=== PATIENT | female | born 1985 | race African-American/Black ===

== ENCOUNTER 2016-06-01 12:15 | Inpatient (IN) ==
[2016-06-01] MEDS: LACTATED RINGERS 1,000 ML IV SCH (12:35)
[2016-06-01] MEDS ORDERED: ONDANSETRON 4 MG/2 ML VIAL IV PRN (12:37)
[2016-06-01 13:01] LABS: Basophils # 0.1 10*3/uL (0.0-0.2); Basophils % 0.6 % (0.0-0.8); Eosinophils # 0.2 10*3/uL (0.0-0.87); Eosinophils % 1.6 % (0.00-10.9); Hematocrit 31.4 VOL% (35.7-47.0); Hemoglobin 9.9 GM/DL (12.0-16.0); Immature Granulocytes % 1.1 %; Immature Granulocytes Absolute 0.12 #; Lymphocytes # 1.6 10*3/uL (1.4-4.0); Lymphocytes % 15.1 % (21.3-54.2); Mean Corpuscular HGB Conc 31.5 GM/DL (32-36); Mean Corpuscular Hemoglobin 25 PG (27-34); Mean Corpuscular Volume 80.3 FL (87-102); Mean Platelet Volume 10.5 FL (9.6-12.0); Monocytes # 1.3 10*3/uL (0.11-0.8); Monocytes % 11.8 % (1.7-12.7); Neutrophils # 7.4 10*3/uL (1.4-7.4); Neutrophils % 69.8 % (38.7-73.9); Platelet Count 242 T/CUMM (130-400); Red Blood Count 3.91 MC/CUMM (3.8-5.5); Red Cell Distribution Width 13.9 % (9.3-17.3); White Blood Count 10.6 T/CUMM (4-12)
[2016-06-01] MEDS: BETAMETH SODIUM PHOS/ACETATE 30 MG/5 ML VIAL IM SCH (13:10)
[2016-06-01 13:19] LABS: Apearance,Urine CLEAR (Clear); Bacteria,Urine Occasional /HPF (Few); Bilirubin,Urine Negative (Negative); Blood, Urine Negative (Negative); Glucose,Urine (UA) 150 mg/dL (Negative); Ketones,Urine 5 mg/dL (Negative); Mucus,Urine Occasional /LPF (Occasional); Nitrite,Urine Negative (Negative); Protein,Urine Negative; RBC,Urine 1 /HPF (0-4); Squamous Epithelial Cell,Urine Occasional /HPF (0-10); Urine Color Yellow (Yellow); Urine Specific Gravity 1.011 (1.001-1.035); WBC,Urine 1 /HPF (0-6)
[2016-06-01 13:26] LABS: Albumin 2.7 G/DL (3.4-5.0); Bilirubin,Total 0.6 MG/DL (0.2-1.0); Calcium 8.5 MG/DL (8.5-10.1); Osmolality,Calculated 277.1 MOS/KG (273-304); Potassium 3.7 MMOL/L (3.5-5.1); Total Protein 6.3 G/DL (6.4-8.3)
[2016-06-01] MEDS ORDERED: MEPERIDINE 25 MG/1 ML VIAL IV ONE (15:11)
[2016-06-01] MEDS ORDERED: PROMETHAZINE 25 MG/1 ML VIAL IM ONE (15:11)
[2016-06-01] MEDS ORDERED: TERBUTALINE 1 MG/1 ML VIAL SUBCUT ONE (17:33)
[2016-06-01] MEDS ORDERED: LACTATED RINGERS 1,000 ML IV SCH (18:00)
--- NOTE | 2016-06-01 19:53 | History and Physical Update ---
History and Physical Update - Dictation Physical: refer to scanned H&P - Physical Exam Mental Status: alert and oriented Heart: regular rate and rhythm Lung: clear to auscultation Abdomen: within normal limits Vitals: within normal limits History and Physical Changes: 31yo at 29w3d by EDC 08/14/16 admitted with regular contractions. Sent over for IV hydration, labs with complaints in office today of unable to hold anything down except for popsicles for several
--- NOTE | 2016-06-01 20:45 | Ultrasound Report ---
Referring physician: Shanice Burt Exam: OB limited ultrasound Date: June 01, 2016 Comparison: OB ultrasounds February 14, 2016 and December 31, 2015 Reason: labor, thinning of cervix Technique: Transabdominal grayscale ultrasound images were obtained. Ultrasound images were captured and stored. Findings: There is a single intrauterine in a cephalic presentation. heart rate is 160 bpm. Amniotic fluid is within normal limits with an RACIHD of 10.5 cm. The placenta is located near the fundus. The cervix measures 3.3 cm in length, and the internal os appears closed. There is questionable minimal fluid within the endocervical canal. Evaluation of anatomy is limited by the gestational age. BPD: 29 weeks 1 day HC: 30 weeks 0 days AC: 29 weeks 6 days The composite estimated gestational age by ultrasound is 29 weeks 5 days with an JUAN CARLOS of August 12, 2016. Previously calculated JUAN CARLOS on December 31, 2015 was August 15, 2016. EFW is 1491 g or 3 lbs. 5 oz.. The HC/AC ratio is 1.07, which is within normal limits. The growth percentile is 57.7% and is based on the LMP. The maternal ovaries are not visualized. Impression: 1. There is a single intrauterine in a cephalic presentation. heart rate is 160 bpm. Estimated gestational age by ultrasound is 29 weeks 5 days with an JUAN CARLOS of August 12, 2016. Previously calculated JUAN CARLOS was August 15, 2016. EFW is 3 lbs. 5 oz. 2. The cervix measures 3.3 cm in length. There is questionable minimal fluid within the endocervical canal, but the internal os appears closed. PROCEDURE INTERPRETED AT [facility] DEPARTMENT OF RADIOLOGY Final Report Signed by: Dr. Laurie Galan
[2016-06-01] MEDS ORDERED: NIFEdipine 10 MG CAPSULE ONE (20:53)
[2016-06-01] MEDS: NIFEdipine 10 MG CAPSULE PO SCH (20:59)
[2016-06-02] MEDS: LACTATED RINGERS 1,000 ML IV SCH (00:56)
[2016-06-02] MEDS ORDERED: LORazepam 2 MG/1 ML VIAL IV ONE (02:39)
[2016-06-02] MEDS: NIFEdipine 10 MG CAPSULE PO SCH (04:02)
[2016-06-02] MEDS ORDERED: NIFEdipine 10 MG CAPSULE PO SCH (09:01)
--- NOTE | 2016-06-02 09:05 | OB/GYN Progress Note ---
SAP ARCHITECT - PN: Subj Interval history: 29w4d still with regular UCs. Did not tolerate Brethine well at all with tachycardia and significant anxiety relieved with Ativan after not subsiding for several hours after dosing. Cannot tolerate Procardia 10 mg. She felt like she couldn't breathe. Will try Procardia 5 mg to see if she can tolerate this. No cervical change this morning. Will try Demerol/Phenergan for relief. Receiving second dose of steroids today. Will decrease IV rate to 60 cc/ hour. Will collect GBS culture. Exam SAP ARCHITECT - Constitutional Vitals: Vital Signs Temp Pulse Resp BP Pulse Ox 06/02/16 04:00 100 H 20 108/68 06/01/16 16:00 98.6 F 95 H 22 124/67 06/01/16 12:34 97.8 F 82 20 117/69 100 Results - Labs CBC & BMP: 06/01/16 12:44 06/01/16 12:44
[2016-06-02] MEDS: MAGNESIUM GLUCONATE 500 MG TABLET PO SCH ×4 (09:37→21:25)
--- NOTE | 2016-06-02 10:59 | XRay Report ---
Portable chest Date: 06/02/2016 Clinical history: Shortness of breath Comparison: 05/18/2016 Technique: Portable AP sitting chest Findings: The heart is minimally enlarged. Motion artifact on the film with the pelvis shielded. Accentuation of the perihilar markings extending to the lung bases. No acute osseous findings with unremarkable mediastinum. Impression: Motion artifact limits the exam. Findings which can be seen with mild CHF/pneumonitis with progressive cardiomegaly. PROCEDURE INTERPRETED AT [facility] DEPARTMENT OF RADIOLOGY Final Report Signed by: Dr. Mildred Perez
[2016-06-02] MEDS ORDERED: LACTATED RINGERS 1,000 ML IV SCH (11:25)
[2016-06-02] MEDS ORDERED: FUROSEMIDE 20 MG/2 ML VIAL IV ONE ×2 (12:58→13:30)
[2016-06-02] MEDS: BETAMETH SODIUM PHOS/ACETATE 30 MG/5 ML VIAL IM SCH (14:09)
[2016-06-03] MEDS: MAGNESIUM GLUCONATE 500 MG TABLET PO SCH ×3 (01:00→10:00)
[2016-06-03 08:50] VITALS: BP 109/72
--- NOTE | 2016-06-03 09:23 | Discharge Summary ---
Hospital Course - Hospital Course Hospital Course: Pt admitted for IV hydration, not able to keep anything down except popsickles. Feeling bad, short of breath. Found to have regular painful UCs upon monitoring. IV hydration, sedation and tocolyitics administered. Pt did not tolerate Brethine or Procardia. Anxiety seemingly provoked by Brethine was relieved with Ativan. We did start her on magnesium gluconate that she tolerated well. CXR on PAD#1 showed poss fluid overload and pt responded well to IV Lasix with good urine output. By the evening of PAD#1 pt was feeling much better and UCs had decreased markedly. She has an appt with DIANE Dorantes tomorrow and she plans to keep this appt. Discharge Plan - Discharge Data Disposition: Disch To Home/Self Care Condition at Discharge: Stable Discharge Diet: regular diet Activity: other (Off work until after delivery; light activity) Hygiene: may shower Weight Bearing at Discharge: full weight bearing Driving: no restrictions Contact your physician if you experience:: fever over 101, Difficulty voiding, Redness or swelling, Nausea/Vomiting, Shortness of breath, Bleeding, pain uncontrolled by pain medications - Discharge Medications New Magnesium Gluconate Tab 500 mg PO Q4H #120 tablet No Action Pnv95/Ferrous Fumarate/FA [ Tablet] 1 each PO DAILY - Follow Up or Referral Follow Up: Shanice Burt DO [Family Provider] - 2 Weeks (and prn) - Forms/Instructions Exam - Constitutional Vitals: Period Temp Pulse Resp BP Sys/Valencia Pulse Ox Last 24 Hr 97.0 F-98.5 F 91-108 18-19 105-131/57-72 100 General appearance: normal weight, no acute distress - Head Head exam: Present: normal inspection, normocephalic - Eye Eye exam: Present: EOMI - Respiratory Respiratory exam: Present: clear to auscultation bilaterally - Cardiovascular Cardiovascular exam: Present: regular rate and rhythm - GI/Abdominal GI/Abdominal exam: Present: soft (fundus firm, nontender) - Extremities Exam Extremities exam: Present: normal inspection - Neurological Exam Neurological exam: Present: alert, oriented X3 - Psychiatric Psychiatric exam: Present: normal affect, normal mood - Skin Skin exam: Present: normal color, warm Discharge Results Procedures and tests throughout hospitalization: Pending Orders 06/02/16 09:10 Group B Streptococcus Culture Stat DS: Provider Date of admission: 06/01/16 17:35 Primary care physician: . No PCP Attending physician on admission: Shanice Burt DO Discharging clinician: Shanice Burt DO Expected date of discharge: 06/03/16
== END 2016-06-03 10:20 | disposition home or self-care (01) | DRG 775 ==
LOC: EDSTATUS 12:15 → N.LD 12:15 → N.LDOUT 12:15 → N.LD 12:22 → UNDODISOB 06-03 10:20
PROVIDERS: ADMIT Obstetrics & Gynecology; ATTEND Obstetrics & Gynecology

== ENCOUNTER 2016-07-13 09:44 | Inpatient (IN) ==
[2016-07-13 10:43] LABS: Basophils % 0.4 % (0.0-0.8); Eosinophils # 0.2 10*3/uL (0.0-0.87); Eosinophils % 1.9 % (0.00-10.9); Hematocrit 28.1 VOL% (35.7-47.0); Hemoglobin 8.7 GM/DL (12.0-16.0); Immature Granulocytes % 0.7 %; Immature Granulocytes Absolute 0.06 #; Lymphocytes # 1.4 10*3/uL (1.4-4.0); Lymphocytes % 16.2 % (21.3-54.2); Mean Corpuscular Hemoglobin 23 PG (27-34); Mean Corpuscular Volume 73.9 FL (87-102); Mean Platelet Volume 11.1 FL (9.6-12.0); Monocytes # 0.9 10*3/uL (0.11-0.8); Monocytes % 11.1 % (1.7-12.7); Neutrophils # 5.9 10*3/uL (1.4-7.4); Neutrophils % 69.7 % (38.7-73.9); Platelet Count 240 T/CUMM (130-400); Red Cell Distribution Width 16.6 % (9.3-17.3); White Blood Count 8.4 T/CUMM (4-12)
[2016-07-13] MEDS ORDERED: LIDOCAINE 1% 50 ML VIAL ONE (12:53)
[2016-07-13] MEDS: ACETAMINOPHEN 325 MG TABLET PO PRN ×2 (13:32→19:12)
--- NOTE | 2016-07-13 16:44 | Ultrasound Report ---
US OB biophys profile Indication: . Variable decelerations. Biophysical profile ultrasound: Comparison 06/01/2016. Single fetus is vertex. Placenta is at the fundus. No previa. RACHID 64 mm, HR 145 BPM. breathing, movement and tone are within normal limits. Impression: 11/09 biophysical profile score. Please note RACHID 64 mm. PROCEDURE INTERPRETED AT [facility] DEPARTMENT OF RADIOLOGY Final Report Signed by: Neel Hagen M.D.
[2016-07-14] MEDS: LACTATED RINGERS 1,000 ML IV SCH ×2 (06:21→13:46)
[2016-07-14] MEDS ORDERED: FAMOTIDINE 20 MG/2 ML VIAL IV ONE (06:34)
[2016-07-14] MEDS ORDERED: CITRIC ACID/SODIUM CITRATE 30 ML UDCUP PO ONE (06:34)
[2016-07-14] MEDS ORDERED: OXYTOCIN/LR 20 UNIT/1,000 ML BAG IV ONE ×2 (06:46→08:32)
[2016-07-14] MEDS ORDERED: SCOPOLAMINE 1.5 MG PATCH TRANSDERM ONE ×2 (06:48→09:13)
[2016-07-14 07:02] LABS: Basophils % 0.4 % (0.0-0.8); Eosinophils # 0.1 10*3/uL (0.0-0.87); Eosinophils % 1.6 % (0.00-10.9); Hematocrit 27.3 VOL% (35.7-47.0); Hemoglobin 8.4 GM/DL (12.0-16.0); Immature Granulocytes % 0.8 %; Immature Granulocytes Absolute 0.06 #; Lymphocytes # 1.5 10*3/uL (1.4-4.0); Lymphocytes % 19.8 % (21.3-54.2); Mean Corpuscular HGB Conc 30.8 GM/DL (32-36); Mean Corpuscular Hemoglobin 23 PG (27-34); Mean Corpuscular Volume 73.6 FL (87-102); Mean Platelet Volume 11.3 FL (9.6-12.0); Monocytes # 1.1 10*3/uL (0.11-0.8); Monocytes % 13.7 % (1.7-12.7); Neutrophils # 4.9 10*3/uL (1.4-7.4); Neutrophils % 63.7 % (38.7-73.9); Platelet Count 232 T/CUMM (130-400); Red Blood Count 3.71 MC/CUMM (3.8-5.5); Red Cell Distribution Width 16.7 % (9.3-17.3); White Blood Count 7.7 T/CUMM (4-12)
[2016-07-14] MEDS ORDERED: OXYTOCIN 10 UNIT/ML VIAL ONE (07:54)
[2016-07-14] MEDS ORDERED: ACETAMINOPHEN 325 MG TABLET PO PRN (08:32)
[2016-07-14] MEDS ORDERED: MAGNESIUM HYDROXIDE SUSP 30 ML UDCUP PO PRN (08:32)
[2016-07-14] MEDS ORDERED: ONDANSETRON 4 MG/2 ML VIAL IV PRN (08:32)
[2016-07-14] MEDS ORDERED: SIMETHICONE CHEW 80 MG TABLET PO PRN (08:32)
[2016-07-14] MEDS ORDERED: PHENYLEPHRINE 1 MG/10 ML SYRINGE IV ONE (08:33)
[2016-07-14] MEDS ORDERED: ONDANSETRON 4 MG/2 ML VIAL ONE (08:33)
[2016-07-14] MEDS ORDERED: MIDAZOLAM 2 MG/2 ML VIAL ONE (08:34)
[2016-07-14] MEDS ORDERED: MORPHINE 10 MG/10 ML VIAL ONE (08:34)
[2016-07-14 08:35] LABS: Apearance,Urine CLOUDY (Clear); Bilirubin,Urine Negative (Negative); Blood, Urine Negative (Negative); Glucose,Urine (UA) Negative (Negative); Ketones,Urine 80 mg/dL (Negative); Mucus,Urine Occasional /LPF (Occasional); Nitrite,Urine Negative (Negative); Protein,Urine 30 MG/DL; RBC,Urine 20 /HPF (0-4); Squamous Epithelial Cell,Urine Occasional /HPF (0-10); Urine Color Yellow (Yellow); Urine Specific Gravity 1.043 (1.001-1.035); Urine Urobilinogen < 2.0 EU/DL (0.2-1.0); WBC,Urine 3 /HPF (0-6)
--- NOTE | 2016-07-14 08:50 | History and Physical Update ---
History and Physical Update - Dictation Physical: refer to scanned H&P - Physical Exam Mental Status: alert and oriented Heart: regular rate and rhythm Lung: clear to auscultation Abdomen: within normal limits Vitals: within normal limits History and Physical Changes: Pt at 35w4d admitted yesterday after outpatient US-guided amniocentesis monitoring revealed recurrent variable decels, episodes of bradycardia though the overall pattern had very good variability. BPP showed RACHID of 6.4. In light of pt's difficulties with the with these other developments, with her height of 4'5", feel it is best to proceed with delivery. 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 She was seen by Dr. Hu and evaluation of pt revealed no maternal concerns usually associated with Horne syndrome. Pt has been quite SOB and uncomfortable throughout the but much more so in the past few weeks.
[2016-07-14] MEDS ORDERED: RHO(D) IMMUNE GLOBULIN 300 MCG SYRINGE IM ONE (09:00)
[2016-07-14] MEDS: IBUPROFEN 800 MG TABLET PO PRN (10:00)
--- NOTE | 2016-07-14 10:26 | Anesthesia ---
Anesthesia Post OP - Post Ansesthetic Evaluation Patient seen in post op: Yes Resp: within normal limits CV: within normal limits Mental: within normal limits Temp: within normal limits [id number]: within normal limits Nausea and Vomiting: within normal limits Pain: within normal limits
[2016-07-14] MEDS ORDERED: PROMETHAZINE 25 MG/1 ML VIAL ONE (11:43)
[2016-07-14] MEDS ORDERED: PROMETHAZINE 25 MG/1 ML VIAL IM PRN (12:09)
[2016-07-15] MEDS: ACETAMINOPHEN/CODEINE 300-30 MG TABLET PO PRN ×3 (00:25→16:12)
[2016-07-15] MEDS: MULTIVITAMIN (PRENATAL) TABLET PO SCH ×2 (01:46→10:05)
[2016-07-15] MEDS: DOCUSATE SODIUM 100 MG CAPSULE PO SCH ×3 (01:46→22:00)
[2016-07-15] MEDS: LACTATED RINGERS 1,000 ML IV SCH ×3 (01:47→01:48)
[2016-07-15] MEDS: IBUPROFEN 800 MG TABLET PO PRN (04:00)
[2016-07-15 07:31] LABS: Basophils % 0.2 % (0.0-0.8); Eosinophils # 0.1 10*3/uL (0.0-0.87); Eosinophils % 1.1 % (0.00-10.9); Hematocrit 25.2 VOL% (35.7-47.0); Hemoglobin 7.6 GM/DL (12.0-16.0); Immature Granulocytes % 0.6 %; Immature Granulocytes Absolute 0.07 #; Lymphocytes # 1.8 10*3/uL (1.4-4.0); Lymphocytes % 14.4 % (21.3-54.2); Mean Corpuscular HGB Conc 30.2 GM/DL (32-36); Mean Corpuscular Hemoglobin 23 PG (27-34); Mean Platelet Volume 10.6 FL (9.6-12.0); Monocytes # 1.5 10*3/uL (0.11-0.8); Monocytes % 11.8 % (1.7-12.7); Neutrophils % 71.9 % (38.7-73.9); Platelet Count 210 T/CUMM (130-400); Red Blood Count 3.36 MC/CUMM (3.8-5.5); Red Cell Distribution Width 16.8 % (9.3-17.3); White Blood Count 12.5 T/CUMM (4-12)
--- NOTE | 2016-07-15 11:19 | Pathology Report from [facility] ---
ACCESSION # : [id number] PATIENT NAME : Zaria Soni ORDERING DR : SKYE FRANCISCO CLINICAL HX: IUP @ 35.5 wks, forderline oligohydraminos, maternal Horne's Syndrome POST-OP DX: Same SPECIMEN INFO: Placenta GROSS DESCRIPTION: Received fresh labeled "ZARIA SONI & PLACENTA" is a 445 gm placenta measuring 22.0 x 19.0 x 2.2 cm. The membranes are pink valencia and translucent. The umbilical cord measures 34.5 cm, contains three vessels and is eccentrically inserted. The surface is blue mcdonough and intact. The maternal surface is red mcdonough and intact with no abnormalities grossly appreciated upon sectioning. Sections submitted A- membranes and cord, B- and maternal surfaces. DIAGNOSIS FOR ZARIA SONI: Three vessel umbilical cord.Unremarkable placental membranes.Unremarkable third trimester placental chorionic villi. SERVICE DATE: 07/14/2016 REPORT DATE: 07/15/2016 PATHOLOGIST: Jonel Dawson M.D. MTDD
[2016-07-16] MEDS: ACETAMINOPHEN/CODEINE 300-30 MG TABLET PO PRN ×2 (00:35→20:55)
[2016-07-16] MEDS: DOCUSATE SODIUM 100 MG CAPSULE PO SCH ×2 (09:52→20:56)
[2016-07-16] MEDS: MULTIVITAMIN (PRENATAL) TABLET PO SCH (09:52)
[2016-07-16] MEDS: IBUPROFEN 800 MG TABLET PO PRN (11:28)
[2016-07-16] MEDS: IRON (CARBONYL) 45 MG TABLET PO SCH (20:56)
[2016-07-17 07:31] VITALS: BP 133/77
[2016-07-17] MEDS: ACETAMINOPHEN/CODEINE 300-30 MG TABLET PO PRN (07:50)
[2016-07-17] MEDS ORDERED: DIPH/TET/ACEL PERT BOOSTER VACCINE 0.5 ML VIAL IM ONE (09:22)
[2016-07-17] MEDS: DOCUSATE SODIUM 100 MG CAPSULE PO SCH (09:30)
[2016-07-17] MEDS: IRON (CARBONYL) 45 MG TABLET PO SCH (09:35)
[2016-07-17] MEDS: MULTIVITAMIN (PRENATAL) TABLET PO SCH (09:35)
--- NOTE | 2016-07-27 23:43 | Discharge Summary ---
Hospital Course - Hospital Course Hospital Course: Pt admitted at 35+ wks with recurrent variable decelerations, and episodes of prolonged bradycardia. She underwent C/S on 07/14/16 without complication. Her course was unremarkable except that she did very well. She was ready for dismissal on 07/17/16. Specialty Discharge - Follow Up or Referrals Follow up with: Shanice Burt DO [Family Provider] - (Call on Tuesday to make a follow up appointment.) Discharge Plan - Discharge Data Condition at Discharge: Stable Discharge Diet: regular diet Activity: other (pelvic rest x 6 wks) Hygiene: may shower Weight Bearing at Discharge: full weight bearing Driving: not until seen by doctor Contact your physician if you experience:: fever over 101, Difficulty voiding, Redness or swelling, Nausea/Vomiting, Shortness of breath, Bleeding, pain uncontrolled by pain medications - Discharge Medications No Action Pnv No.95/Ferrous Fum/Folic AC [ Tablet] 1 each PO DAILY Magnesium Gluconate Tab 2,000 mg PO Q4H Ferrous Sulfate [Iron] 325 mg PO BID - Follow Up or Referral Follow Up: Shanice Burt DO [Family Provider] - (Call on Tuesday to make a follow up appointment.) - Forms/Instructions Instructions: Section (DC), Surgical Site Infections (GEN), Bleeding (DC) Exam - Constitutional General appearance: other (normal weight for height of only 4'5") - Head Head exam: Present: normal inspection, normocephalic - Eye Eye exam: Present: EOMI - Respiratory Respiratory exam: Present: clear to auscultation bilaterally - Cardiovascular Cardiovascular exam: Present: regular rate and rhythm - GI/Abdominal GI/Abdominal exam: Present: soft (fundus firm, nontender. Incision intact without E/I/D) - Extremities Exam Extremities exam: Present: normal inspection - Neurological Exam Neurological exam: Present: alert, oriented X3 - Psychiatric Psychiatric exam: Present: normal affect, normal mood - Skin Skin exam: Present: normal color, warm DS: Provider Date of admission: 07/13/16 09:45 Primary care physician: . No PCP Attending physician on admission: Shanice Burt DO Consults: 07/13/16 18:49 Consult to Anesthesiology [CONS] Routine Consulting Provider: Reason for Anesthesiology: Pre-op Clearance 07/14/16 08:32 Consult to Lacquer Shader [CONS] Routine Consult Lacquer Shader: Breast Feeding Discharging clinician: Shanice Burt DO Expected date of discharge: 07/17/16
== END 2016-07-17 11:05 | disposition home or self-care (01) | DRG 765 ==
LOC: N.LDOUT 09:44 → N.LD 09:45 → N.OB 07-14 11:35
PROVIDERS: ADMIT Obstetrics & Gynecology; ATTEND Obstetrics & Gynecology
PROC: LDCSECT (ICD-10-PCS; 2016-07-14 08:00)

== ENCOUNTER 2021-01-28 07:22 | Observation (INO) ==
[2021-01-28] MEDS ORDERED: SODIUM CHLORIDE 0.9% 1,000 ML IV STA (08:53)
[2021-01-28 08:58] LABS: Basophils # 0.1 10*3/uL (0.0-0.2); Basophils % 0.6 % (0.0-0.8); Eosinophils # 0.4 10*3/uL (0.0-0.87); Eosinophils % 4.6 % (0.00-10.9); Hematocrit 37.7 VOL% (35.7-47.0); Hemoglobin 12.2 GM/DL (12.0-16.0); Immature Granulocytes % 0.5 %; Immature Granulocytes Absolute 0.04 #; Lymphocytes # 1.9 10*3/uL (1.4-4.0); Lymphocytes % 21.9 % (21.3-54.2); Mean Corpuscular HGB Conc 32.4 GM/DL (32-36); Mean Corpuscular Volume 81.1 FL (87-102); Monocytes % 8.8 % (1.7-12.7); Neutrophils % 63.6 % (38.7-73.9); Platelet Count 351 T/CUMM (130-400); Red Blood Count 4.65 MC/CUMM (3.8-5.5); Red Cell Distribution Width 14.6 % (9.3-17.3); White Blood Count 8.7 T/CUMM (4-12)
[2021-01-28] MEDS ORDERED: BISACODYL 10 MG SUPP RECTAL PRN (09:39)
[2021-01-28] MEDS ORDERED: ONDANSETRON 4 MG/2 ML VIAL IV PRN (09:39)
[2021-01-28] MEDS ORDERED: MORPHINE 2 MG/1 ML SYRINGE IV PRN (09:39)
[2021-01-28] MEDS ORDERED: KETOROLAC 30 MG/1 ML VIAL IV PRN (09:39)
[2021-01-28] MEDS ORDERED: MAGNESIUM HYDROXIDE SUSP 30 ML UDCUP PO PRN (09:39)
[2021-01-28] MEDS ORDERED: LACTATED RINGERS 1,000 ML IV SCH (10:00)
[2021-01-28] MEDS ORDERED: SCOPOLAMINE 1.5 MG PATCH TRANSDERM ONE (10:25)
[2021-01-28 11:00] LABS: Amorphous Crystals,Urine Few /HPF (Few); Bilirubin,Urine Negative (Negative); Blood, Urine Large mg/dL (Negative); Glucose,Urine (UA) Negative (Negative); Ketones,Urine 5 mg/dL (Negative); Mucus,Urine Occasional /LPF (Occasional); Nitrite,Urine Negative (Negative); Protein,Urine Negative; RBC,Urine 1 /HPF (0-4); Squamous Epithelial Cell,Urine Occasional /HPF (0-10); Urine Appearance CLEAR (Clear); Urine Color Straw (Yellow); Urine Specific Gravity 1.006 (1.001-1.035); Urine Urobilinogen < 2.0 EU/DL (0.2-1.0)
[2021-01-28] MEDS ORDERED: fentaNYL 100 MCG/2 ML VIAL ONE ×2 (12:23→13:40)
[2021-01-28] MEDS ORDERED: MIDAZOLAM 2 MG/2 ML VIAL ONE (12:23)
[2021-01-28] MEDS ORDERED: propofoL 200 MG/20 ML VIAL IV ONE (12:25)
[2021-01-28] MEDS ORDERED: ONDANSETRON 4 MG/2 ML VIAL ONE (12:25)
[2021-01-28] MEDS ORDERED: DEXAMETHASONE 4 MG/1 ML VIAL ONE (12:25)
[2021-01-28] MEDS ORDERED: SUCCINYLCHOLINE 200 MG/10 ML VIAL ONE (12:25)
[2021-01-28] MEDS ORDERED: GLYCOPYRROLATE 0.4 MG/2 ML VIAL ONE (12:25)
[2021-01-28] MEDS ORDERED: ROCURONIUM 50 MG/5 ML VIAL IV ONE (12:25)
[2021-01-28] MEDS ORDERED: LIDOCAINE 2% 5 ML VIAL ONE (12:25)
[2021-01-28] MEDS ORDERED: KETOROLAC 30 MG/1 ML VIAL ONE (12:26)
[2021-01-28] MEDS ORDERED: SEVOFLURANE 1 UNIT/15 MINUTE INH ONE ×2 (12:26→14:37)
[2021-01-28] MEDS ORDERED: ACETAMINOPHEN INJ 1,000 MG/100 ML VIAL IV ONE (12:26)
[2021-01-28] MEDS ORDERED: TISSUE ADHESIVE 1 EACH APPLICATOR TOP ONE (13:03)
[2021-01-28] MEDS ORDERED: NEOSTIGMINE 10 MG/10 ML VIAL ONE (14:04)
[2021-01-28] MEDS ORDERED: ACETAMINOPHEN/CODEINE 300-30 MG TABLET PO PRN (17:12)
[2021-01-28] MEDS ORDERED: DOCUSATE SODIUM 100 MG CAPSULE PO SCH (21:00)
[2021-01-29 03:38] VITALS: BP 108/57
[2021-01-29 05:48] LABS: Basophils % 0.2 % (0.0-0.8); Eosinophils % 0.1 % (0.00-10.9); Hematocrit 36.4 VOL% (35.7-47.0); Hemoglobin 11.9 GM/DL (12.0-16.0); Immature Granulocytes % 0.6 %; Immature Granulocytes Absolute 0.08 #; Lymphocytes # 1.3 10*3/uL (1.4-4.0); Lymphocytes % 9.5 % (21.3-54.2); Mean Corpuscular HGB Conc 32.7 GM/DL (32-36); Mean Platelet Volume 9.3 FL (9.6-12.0); Monocytes % 5.9 % (1.7-12.7); Neutrophils % 83.7 % (38.7-73.9); Platelet Count 370 T/CUMM (130-400); Red Blood Count 4.44 MC/CUMM (3.8-5.5); Red Cell Distribution Width 14.4 % (9.3-17.3); White Blood Count 14.2 T/CUMM (4-12)
[2021-01-29] MEDS ORDERED: ONDANSETRON 4 MG TABLET PO PRN (06:05)
== END 2021-01-29 07:05 | disposition home or self-care (01) ==
LOC: N.ED 07:22 → N.EDINP 07:22 → N.OB 11:39
PROVIDERS: ADMIT Obstetrics & Gynecology; ATTEND Obstetrics & Gynecology